=== PATIENT | female | born 1970 | race Caucasian/White ===

== ENCOUNTER 2017-11-15 02:13 | Emergency (ER) | payer MEDICAID ==
[~2017-11-15] VITALS: Ht 162.6 cm; Wt 62.0 kg
[2017-11-15] MEDS ORDERED: normal saline 1000ML IV soln IVB ONE (02:30)
[2017-11-15] MEDS ORDERED: ketorolac trometh. 30mg/ml inj. IV ONE (02:30)
[2017-11-15] MEDS ORDERED: ondansetron/PF 4mg/2ml inj IV ONE (02:30)
[2017-11-15 03:07] LABS: BASOPHILS % (AUTO) 0.3 % (0-1); EOSINOPHILS # (AUTO) 0.2 X10'3 (0-0.9); EOSINOPHILS % (AUTO) 1.1 % (0-6); HEMATOCRIT 40.8 % (35.0-45.0); HEMOGLOBIN 13.9 g/dl (12.0-16.0); LYMPHOCYTES # (AUTO) 2.4 X10'3 (1.1-4.8); LYMPHOCYTES % (AUTO) 14.8 % (21-51); MEAN CORPUSCULAR HEMOGLOBIN 33.5 PG (27.0-31.0); MEAN CORPUSCULAR HGB CONC 34.1 % (33.0-36.5); MEAN CORPUSCULAR VOLUME 98.2 FL (78-98); MEAN PLATELET VOLUME 7.5 FL (7.4-10.4); MONOCYTES # (AUTO) 0.7 X10'3 (0-0.9); MONOCYTES % (AUTO) 4.6 % (2-12); NEUTROPHILS # (AUTO) 12.6 X10'3 (1.8-7.7); NEUTROPHILS % (AUTO) 79.2 % (42-75); PLATELET COUNT 337 X10'3 (140-440); RED BLOOD COUNT 4.15 X10'6 (4.20-5.60); RED CELL DISTRIBUTION WIDTH 13.3 % (11.5-14.5); WHITE BLOOD COUNT 15.9 X10'3 (4.5-11.0)
[2017-11-15 03:39] VITALS: BP 141/79
[2017-11-15 04:13] LABS: URINE HCG NEGATIVE (NEG)
[2017-11-15 04:14] LABS: URINE AMPHETAMINE SCREEN POSITIVE (Neg); URINE BARBITUATE SCREEN NEGATIVE (Neg); URINE BENZODIAZEPINES SCREEN NEGATIVE (Neg); URINE CANNABINOID SCREEN POSITIVE (Neg); URINE COCAINE SCREEN NEGATIVE (Neg); URINE METHADONE SCREEN NEGATIVE (Neg); URINE OPIATE SCREEN POSITIVE (Neg); URINE PHENCYCLIDINE SCREEN NEGATIVE (Neg)
[2017-11-15 04:15] LABS: ALANINE AMINOTRANSFERASE 19 U/L (12-78); ALBUMIN 4.1 G/DL (3.4-5.0); ALBUMIN/GLOBULIN RATIO 1.1 (1.1-1.5); ALKALINE PHOSPHATASE 96 IU/L (46-116); ANION GAP 8 (8-16); ASPARTATE AMINO TRANSFERASE 16 U/L (10-37); BILIRUBIN,TOTAL 0.2 MG/DL (0.1-1.0); BLOOD UREA NITROGEN 20 MG/DL (7-18); CALCIUM 9.1 MG/DL (8.5-10.1); CHLORIDE 104 MMOL/L (99-107); GLUCOSE 138 MG/DL (70-104); LIPASE 73 U/L (73-393); POTASSIUM 3.6 MMOL/L (3.5-5.1); SODIUM 142 MMOL/L (135-145); TOTAL CARBON DIOXIDE 30.4 MMOL/L (24-32); TOTAL PROTEIN 7.9 G/DL (6.4-8.2); eGFR 59 ML/MIN
[2017-11-15 04:16] LABS: ETHANOL < 0.010 GM/DL (0.0-0.010)
[2017-11-15 04:18] LABS: CLARITY,URINE SLIGHTLY CLOUDY (Clear); COLOR,URINE YELLOW (Yellow); GLUCOSE, URINE NEGATIVE (Neg); KETONES,URINE TRACE mg/dl (Neg); LEUKOCYTE ESTERASE ,URINE TRACE (Neg); NITRITES, URINE NEGATIVE (Neg); OCCULT BLOOD,URINE LARGE (Neg); PROTEIN,URINE TRACE mg/dl (Neg); UROBILINOGEN,URINE 0.2 E.U/dL (0.2-1.0)
[2017-11-15 04:26] LABS: UA COLLECTION TYPE VOIDED
[2017-11-15 04:27] LABS: CAL OXALATE CRYSTALS 1+ /HPF (NEGATIVE); SQUAMOUS EPITHELIAL CELL,UR MODERATE /LPF (FEW)
[2017-11-15 04:28] LABS: MUCUS STRANDS MANY /LPF (Neg)
[2017-11-15 04:29] LABS: BACTERIA,URINE 2+ /HPF (Neg); RBC,URINE 20-50 /HPF (0-2); WBC,URINE 30-50 /HPF (0-4)
[2017-11-15 04:37] LABS: TOTAL CELLS COUNTED 100
[2017-11-15 04:38] LABS: PLATELET ESTIMATE NORMAL
[2017-11-15] MEDS ORDERED: KETO10TA2 PO (05:14)
[2017-11-15] MEDS ORDERED: ONDA4TAB9 SL (05:14)
[2017-11-15] MEDS ORDERED: FLO0.4C PO (05:14)
[2017-11-15] MEDS ORDERED: HYDR-565 PO (05:14)
[2017-11-15] MEDS ORDERED: LEVO500T2 PO (05:14)
== END 2017-11-15 05:34 | disposition home or self-care (01) ==
LOC: ER 02:14
DX: N20.0 Calculus of kidney (principal); N13.4 Hydroureter; F15.10 Other stimulant abuse, uncomplicated; F12.10 Cannabis abuse, uncomplicated; N83.202 Unspecified ovarian cyst, left side; N83.201 Unspecified ovarian cyst, right side; D25.9 Leiomyoma of uterus, unspecified; N12 Tubulo-interstitial nephritis, not specified as acute or chronic; F17.200 Nicotine dependence, unspecified, uncomplicated; Z88.0 Allergy status to penicillin
CPT/HCPCS: 36415; 74176; 80053; 80305; 80320; 81001; 81025; 83690; 85025; 87088; 96361; 96374; 99285; A4315; J1885; J2405; J7030

== ENCOUNTER 2020-01-10 03:01 | Emergency (ER) | payer MEDICAID ==
[~2020-01-10] VITALS: Ht 162.6 cm; Wt 63.6 kg
[~2020-01-10 03:01] MED LIST: KETO10TA2 PO
[2020-01-10] MEDS ORDERED: ketorolac trometh. 30mg/ml inj. IV ONE (03:05)
[2020-01-10] MEDS ORDERED: normal saline 1000ML IV soln IVB ONE (03:05)
[2020-01-10] MEDS ORDERED: ondansetron/PF 4mg/2ml inj IV ONE (03:05)
[2020-01-10] MEDS ORDERED: HYDROmorphone 1 mg/ml syringe IV ONE ×2 (03:35→03:45)
[2020-01-10] MEDS ORDERED: HYDR-3965 PO (03:55)
[2020-01-10] MEDS ORDERED: KETO10TA2 PO (03:55)
[2020-01-10] MEDS ORDERED: TADA20TA PO (03:55)
[2020-01-10] MEDS ORDERED: ONDA4TAB6 PO (03:55)
[2020-01-10] MEDS ORDERED: NO HOME MEDS (04:11)
--- NOTE | 2020-01-10 04:11 | NUR ---
returned from ct and dr. chamorro reports that pt will l
--- NOTE | 2020-01-10 04:11 | NUR ---
likely need admission d/t her kidney stone. piv (after 4 attampts) placed in lfa, 20g. labs drawn and given dilaudid, toradol and zofran and 1 liter ns bolus started. pt up to [facility] to attempt to void and only scant amt out. pt reports very painful while sitting up trying to void. Pt now agreeable to straight cath. states she is homeless, takes not meds and does not have a PCP. States metha dn mj and nicotine used. last used meth an hr before coming to ER. She is very calm and sleepy after dilaudid administrations.
[2020-01-10 04:20] LABS: ALANINE AMINOTRANSFERASE 21 U/L (12-78); ALBUMIN 4.1 G/DL (3.4-5.0); ALBUMIN/GLOBULIN RATIO 1.2 (1.1-1.5); ALKALINE PHOSPHATASE 88 IU/L (46-116); ANION GAP 10 (8-16); ASPARTATE AMINO TRANSFERASE 17 U/L (10-37); BILIRUBIN,TOTAL 0.2 MG/DL (0.1-1.0); BLOOD UREA NITROGEN 12 MG/DL (7-18); BUN/CREATININE RATIO 12.9 (6.6-38.0); CALCIUM 9.2 MG/DL (8.5-10.1); CHLORIDE 105 MMOL/L (99-107); CREATININE 0.93 MG/DL (0.40-0.90); GLUCOSE 134 MG/DL (70-104); LIPASE 67 U/L (73-393); POTASSIUM 3.3 MMOL/L (3.5-5.1); SODIUM 141 MMOL/L (135-145); TOTAL CARBON DIOXIDE 26.4 MMOL/L (24-32); TOTAL PROTEIN 7.5 G/DL (6.4-8.2); eGFR 64 ML/MIN
[2020-01-10 04:31] LABS: BASOPHILS # (AUTO) 0.1 X10'3 (0-0.2); BASOPHILS % (AUTO) 0.5 % (0-1); EOSINOPHILS # (AUTO) 0.2 X10'3 (0-0.9); EOSINOPHILS % (AUTO) 1.6 % (0-6); HEMATOCRIT 46.4 % (35.0-45.0); HEMOGLOBIN 15.5 g/dl (12.0-16.0); LYMPHOCYTES # (AUTO) 2.3 X10'3 (1.1-4.8); LYMPHOCYTES % (AUTO) 18.4 % (21-51); MEAN CORPUSCULAR HEMOGLOBIN 33.3 PG (27.0-31.0); MEAN CORPUSCULAR HGB CONC 33.5 g/dL (33.0-36.5); MEAN CORPUSCULAR VOLUME 99.3 FL (78-98); MEAN PLATELET VOLUME 7.4 FL (7.4-10.4); MONOCYTES # (AUTO) 0.7 X10'3 (0-0.9); MONOCYTES % (AUTO) 5.4 % (2-12); NEUTROPHILS # (AUTO) 9.2 X10'3 (1.8-7.7); NEUTROPHILS % (AUTO) 74.1 % (42-75); PLATELET COUNT 328 X10'3 (140-440); RED BLOOD COUNT 4.67 X10'6 (4.20-5.60); RED CELL DISTRIBUTION WIDTH 13.1 % (11.5-14.5); WHITE BLOOD COUNT 12.4 X10'3 (4.5-11.0)
[2020-01-10 04:36] LABS: CLARITY,URINE CLOUDY (Clear); COLOR,URINE YELLOW (Yellow); GLUCOSE, URINE NEGATIVE (Neg); KETONES,URINE NEGATIVE (Neg); LEUKOCYTE ESTERASE ,URINE NEGATIVE (Neg); NITRITES, URINE NEGATIVE (Neg); OCCULT BLOOD,URINE LARGE (Neg); PH,URINE 5.5 (4.8-8.0); PROTEIN,URINE >=300 mg/dl (Neg); UROBILINOGEN,URINE 0.2 E.U/dL (0.2-1.0)
[2020-01-10 04:39] LABS: UA COLLECTION TYPE STRAIGHT CATH
[2020-01-10 04:48] LABS: AMORPHOUS URATES 2+; MUCUS STRANDS MANY /LPF (Neg); SQUAMOUS EPITHELIAL CELL,UR FEW /LPF (FEW)
[2020-01-10 04:49] LABS: BACTERIA,URINE FEW /HPF (Neg); WBC,URINE 0-4 /HPF (0-4)
[2020-01-10 04:55] VITALS: BP 130/82
--- NOTE | 2020-01-10 04:56 | NUR ---
Dr Nevarez reports that pt to be discharged and can fu with her pcp and get urology referral. pt to be given a urine strainer and sample cup. pain now minimal and no nausea. pt reports he friend is waiting in is vehicle for her.
--- NOTE | 2020-01-10 05:07 | NUR ---
verbal for norco prior to DC received from Dr. Nevarez. I just spoke to Pt's ride, Ed, he is in the parking lot.
[2020-01-10] MEDS ORDERED: HYDROcodone/acetaminophen 5mg/325mg tablet PO ONE ×3 (05:10→05:30)
--- NOTE | 2020-01-10 05:43 | NUR ---
pt given norco tab 5 /325 prior to dc. ambulting with steady gait.
--- NOTE | 2020-01-14 11:25 | NUR ---
VM left for pt requesting ed call back r/t lab results from recent visit.
--- NOTE | 2020-01-15 09:40 | NUR ---
VM left for pt requesting call back r/t recent ED visit and associated lab results.
--- NOTE | 2020-01-16 07:51 | NUR ---
Third attempt to contact patient, letter sent. Patient to be placed on levaquin 500 mg PO QD x3 days if patient is symptomatic. Sample may have been a contaminant. Addendum: 01/16/20 at [address] Walton
== END 2020-01-10 05:45 | disposition home or self-care (01) ==
LOC: ER 03:01
DX: N13.2 Hydronephrosis with renal and ureteral calculous obstruction (principal); N13.4 Hydroureter; F11.10 Opioid abuse, uncomplicated; F15.90 Other stimulant use, unspecified, uncomplicated; Z88.0 Allergy status to penicillin; Z79.899 Other long term (current) drug therapy
CPT/HCPCS: 36415; 74176; 80053; 81001; 83690; 85025; 87077; 87088; 87186; 96361; 96374; 96375; 99284; J1170; J1885; J2405; J7030

== ENCOUNTER 2023-01-05 08:11 | Inpatient (IN) | payer MEDICAID ==
[~2023-01-05] VITALS: Ht 162.6 cm; Wt 59.1 kg
[~2023-01-05 08:11] MED LIST changes: -KETO10TA2 PO; +NO HOME MEDS
[2023-01-05 08:53] LABS: BILIRUBIN,URINE SMALL (Neg); CLARITY,URINE CLOUDY (Clear); COLOR,URINE YELLOW (Yellow); GLUCOSE, URINE NEGATIVE (Neg); KETONES,URINE NEGATIVE (Neg); LEUKOCYTE ESTERASE ,URINE TRACE (Neg); NITRITES, URINE POSITIVE (Neg); OCCULT BLOOD,URINE MODERATE (Neg); PROTEIN,URINE 100 mg/dl (Neg); UROBILINOGEN,URINE >=8.0 E.U/dL (0.2-1.0)
[2023-01-05 08:54] LABS: URINE HCG NEGATIVE (NEG)
[2023-01-05 08:56] LABS: BASOPHILS # (AUTO) 0.2 X10'3 (0-0.2); BASOPHILS % (AUTO) 0.9 % (0-1); EOSINOPHILS % (AUTO) 0.1 % (0-6); HEMOGLOBIN 13.2 g/dl (12.0-16.0); LYMPHOCYTES # (AUTO) 1.2 X10'3 (1.1-4.8); MEAN CORPUSCULAR HEMOGLOBIN 31.8 PG (27.0-31.0); MEAN CORPUSCULAR HGB CONC 33.1 g/dL (33.0-36.5); MEAN CORPUSCULAR VOLUME 96.2 FL (78-98); MEAN PLATELET VOLUME 7.9 FL (7.4-10.4); MONOCYTES # (AUTO) 1.3 X10'3 (0-0.9); MONOCYTES % (AUTO) 5.6 % (2-12); NEUTROPHILS # (AUTO) 20.6 X10'3 (1.8-7.7); NEUTROPHILS % (AUTO) 88.4 % (42-75); PLATELET COUNT 456 X10'3 (140-440); RED BLOOD COUNT 4.16 X10'6 (4.20-5.60); RED CELL DISTRIBUTION WIDTH 13.5 % (11.5-14.5); WHITE BLOOD COUNT 23.2 X10'3 (4.5-11.0)
[2023-01-05 08:57] LABS: UA COLLECTION TYPE CLN CATCH MIDSTREAM
[2023-01-05 09:01] LABS: ALANINE AMINOTRANSFERASE 27 U/L (12-78); ALBUMIN 2.1 G/DL (3.4-5.0); ALBUMIN/GLOBULIN RATIO 0.4 (1.1-1.5); ALKALINE PHOSPHATASE 161 IU/L (46-116); ANION GAP 10 (8-16); ASPARTATE AMINO TRANSFERASE 18 U/L (10-37); BILIRUBIN,TOTAL 0.7 MG/DL (0.1-1.0); BLOOD UREA NITROGEN 8 MG/DL (7-18); BUN/CREATININE RATIO 12.1 (10.0-20.0); CHLORIDE 95 MMOL/L (99-107); CREATININE 0.66 MG/DL (0.40-0.90); GLUCOSE 132 MG/DL (70-104); SODIUM 134 MMOL/L (135-145); TOTAL CARBON DIOXIDE 29.2 MMOL/L (24-32); TOTAL PROTEIN 7.3 G/DL (6.4-8.2); eCRCL 84 ML/MIN; eGFR > 90 ML/MIN
[2023-01-05 09:03] LABS: BACTERIA,URINE 4+ /HPF (Neg); SQUAMOUS EPITHELIAL CELL,UR MODERATE /LPF (FEW); WBC,URINE 20-30 /HPF (0-4)
[2023-01-05 09:11] LABS: POTASSIUM 2.7 MMOL/L (3.5-5.1)
[2023-01-05 09:13] LABS: URINE AMPHETAMINE SCREEN POSITIVE (Neg); URINE BARBITUATE SCREEN NEGATIVE (Neg); URINE BENZODIAZEPINES SCREEN POSITIVE (Neg); URINE CANNABINOID SCREEN POSITIVE (Neg); URINE COCAINE SCREEN NEGATIVE (Neg); URINE METHADONE SCREEN NEGATIVE (Neg); URINE OPIATE SCREEN NEGATIVE (Neg); URINE PHENCYCLIDINE SCREEN NEGATIVE (Neg)
[2023-01-05 09:13] LABS: LIPASE < 50 U/L (73-393)
--- NOTE | 2023-01-05 09:36 | NUR ---
x2 attempts with PIV and ultrasound
[2023-01-05] MEDS ORDERED: normal saline 1000ML IV soln IV ONE (09:55)
[2023-01-05] MEDS ORDERED: levoFLOXACIN-Levaquin 750MG/D5 150 ML IV ONE (10:05)
[2023-01-05] MEDS ORDERED: CefTRIAXone 2gm/D5W 50ml BAG 50 ML IV ONE (10:05)
[2023-01-05] MEDS ORDERED: potassium Cl 40MEQ/1/2NS 520ml 520 ML IV SCH (10:05)
[2023-01-05 10:19] LABS: MAGNESIUM 1.8 MG/DL (1.5-2.4)
[2023-01-05 12:12] LABS: CREATINE KINASE 21 U/L (26-192); PHOSPHORUS 2.5 MG/DL (2.3-4.5)
[2023-01-05 12:14] LABS: C-REACTIVE PROTEIN 29.44 MG/DL (0.0-0.5); CREATINE KINASE MB < 0.5 ng/ml (0.3-3.6)
[2023-01-05 12:18] LABS: ETHANOL < 10 MG/DL (<10)
[2023-01-05] MEDS ORDERED: acetaminophen 325mg tablet PO PRN (12:50)
[2023-01-05] MEDS ORDERED: magnesium Cl slow-release 64mg tablet PO PRN (12:50)
[2023-01-05] MEDS ORDERED: potassium Cl 20 mEq SR tablet PO PRN (12:50)
[2023-01-05] MEDS: normal saline 1000ml 1,000 ML IV SCH (13:21)
[2023-01-05] MEDS: ondansetron/PF 4mg/2ml inj IV PRN (14:00)
--- NOTE | 2023-01-05 14:47 | NUR ---
Patient requesting pain medication, attempted to page resident Dr. Curry and phone not registered, paged Dr. Srivastava for pain medication request.
[2023-01-05] MEDS ORDERED: morphine 2 MG/ML inj. syringe IV PRN (16:00)
[2023-01-05] MEDS ORDERED: LORazepam 2 mg/ml vial IV PRN (16:00)
[2023-01-05] MEDS ORDERED: Potassium Cl inj 20 MEQ in normal saline 1000ml 990 ML IV SCH (16:05)
[2023-01-05] MEDS: LORazepam 1 MG tablet PO PRN (16:20)
[2023-01-05] MEDS ORDERED: VANCOMYCIN 1,500MG in normal saline IV soln 300 ML IV ONE (16:20)
[2023-01-05] MEDS: morphine 2 MG/ML inj. syringe IV PRN (16:21)
[2023-01-05 17:19] LABS: APTT 33 SECONDS (22-32); INR 1.2 INR; PROTHROMBIN TIME 12.8 SECONDS (9.0-12.0)
--- NOTE | 2023-01-05 17:34 | NUR ---
Patient upset and would like to anne BUSBY MD for nicotene patch 1PPD smoker.
[2023-01-05] MEDS: potassium Cl 20mEq in NS 1,000 ML IV SCH (17:44)
[2023-01-05] MEDS ORDERED: nicotine 14mg patch - 24hr TD ONE (17:55)
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
[2023-01-06] MEDS: ondansetron/PF 4mg/2ml inj IV PRN (01:02)
[2023-01-06] MEDS: morphine 2 MG/ML inj. syringe IV PRN (02:36)
[2023-01-06 04:12] LABS: BASOPHILS # (AUTO) 0.1 X10'3 (0-0.2); BASOPHILS % (AUTO) 0.5 % (0-1); EOSINOPHILS # (AUTO) 0.1 X10'3 (0-0.9); EOSINOPHILS % (AUTO) 0.5 % (0-6); HEMATOCRIT 34.4 % (35.0-45.0); HEMOGLOBIN 11.1 g/dl (12.0-16.0); LYMPHOCYTES # (AUTO) 1.4 X10'3 (1.1-4.8); LYMPHOCYTES % (AUTO) 10.1 % (21-51); MEAN CORPUSCULAR HGB CONC 32.2 g/dL (33.0-36.5); MEAN CORPUSCULAR VOLUME 96.2 FL (78-98); MEAN PLATELET VOLUME 7.7 FL (7.4-10.4); MONOCYTES # (AUTO) 0.7 X10'3 (0-0.9); MONOCYTES % (AUTO) 5.1 % (2-12); NEUTROPHILS # (AUTO) 11.9 X10'3 (1.8-7.7); NEUTROPHILS % (AUTO) 83.8 % (42-75); PLATELET COUNT 478 X10'3 (140-440); RED BLOOD COUNT 3.58 X10'6 (4.20-5.60); RED CELL DISTRIBUTION WIDTH 12.9 % (11.5-14.5); WHITE BLOOD COUNT 14.2 X10'3 (4.5-11.0)
[2023-01-06 04:22] LABS: ALBUMIN 1.6 G/DL (3.4-5.0); ANION GAP 11 (8-16); BLOOD UREA NITROGEN 13 MG/DL (7-18); BUN/CREATININE RATIO 22.8 (10.0-20.0); CALCIUM 8.6 MG/DL (8.5-10.1); CHLORIDE 103 MMOL/L (99-107); CREATININE 0.57 MG/DL (0.40-0.90); GLUCOSE 93 MG/DL (70-104); MAGNESIUM 1.7 MG/DL (1.5-2.4); SODIUM 140 MMOL/L (135-145); TOTAL CARBON DIOXIDE 26.4 MMOL/L (24-32); eCRCL 97 ML/MIN; eGFR > 90 ML/MIN
[2023-01-06] MEDS ORDERED: vancomycin/NS 1 GM ADD-VANTAGE 250 ML IV SCH (05:00)
[2023-01-06] MEDS: LORazepam 1 MG tablet PO PRN (06:49)
[2023-01-06 06:56] VITALS: BP 139/65; PULSE 78; TEMP 98.1; O2SAT 98
[2023-01-06 07:00] VITALS: RESP 21
[2023-01-06] MEDS: potassium Cl 20mEq in NS 1,000 ML IV SCH (07:27)
[2023-01-06] MEDS ORDERED: levoFLOXACIN-Levaquin 500mg/D5 100 ML IV SCH (08:00)
[2023-01-06] MEDS ORDERED: nicotine 14mg patch - 24hr TD SCH (08:00)
[2023-01-06] MEDS: clindamycin 300mg/D5W 50mL 50 ML IV SCH ×2 (10:24)
[2023-01-06] MEDS: normal saline 1000ml 1,000 ML IV SCH (10:24)
--- NOTE | 2023-01-06 11:06 | NUR ---
PT WANTS TO AMA, PRIMARY SUPPLY SPECIALIST MADE AWARE.
--- NOTE | 2023-01-06 17:30 | NUR ---
PT WAS UPSET WITH TX AND WANTED TO LEAVE THE ER. GOT PT TO SIGN AMA AND RETURNED TO HER ROOM AND PT WAS GONE. PT HAD IV'S IN BOTH ARMS. CALLED JASSON FOR A WELLFARE CHECK.
[2023-01-07] MEDS ORDERED: VANCOMYCIN LEVEL IV ONE (04:30)
== END 2023-01-06 11:42 | disposition left against medical advice (07) | DRG 720 ==
LOC: ER 08:11 → ED HOLD 12:46
PROVIDERS: ADMIT Internal Medicine; ATTEND Internal Medicine
DX: A41.9 Sepsis, unspecified organism (principal); J96.01 Acute respiratory failure with hypoxia; E46 Unspecified protein-calorie malnutrition; J18.9 Pneumonia, unspecified organism; E87.6 Hypokalemia; F10.10 Alcohol abuse, uncomplicated; F19.10 Other psychoactive substance abuse, uncomplicated; Z60.2 Problems related to living alone; Z53.29 Procedure and treatment not carried out because of patient's decision for other reasons; N39.0 Urinary tract infection, site not specified; Z88.0 Allergy status to penicillin; Z83.3 Family history of diabetes mellitus; Z82.49 Family history of ischemic heart disease and other diseases of the circulatory system; Z56.0 Unemployment, unspecified; Z71.6 Tobacco abuse counseling; Z68.22 Body mass index [BMI] 22.0-22.9, adult; Z71.51 Drug abuse counseling and surveillance of drug abuser
CPT/HCPCS: 36415; 71045; 71250; 74176; 80048; 80053; 80305; 80320; 81001; 81025; 82550; 82553; 83605; 83690; 83735; 83874; 84100; 84132; 84145; 84484; 85025; 85610; 85730; 86140; 87040; 87077; 87088; 87186; 93005; 99285; G0378; J0696; J1956; J2270; J2405; J3370; J3480; J3490; J7030; J7040